=== PATIENT | female | born 1970 | race Two or more races ===

== ENCOUNTER 2019-10-03 08:07 | Emergency (ER) | payer MEDICAID ==
[~2019-10-03] VITALS: Ht 154.9 cm; Wt 53.6 kg
[2019-10-03 08:15] VITALS: BP 133/74
[2019-10-03] MEDS ORDERED: PRED20TA PO (08:22)
[2019-10-03] MEDS ORDERED: ACYC-202 PO (08:22)
[2019-10-03] MEDS ORDERED: HYDR-3965 PO (08:22)
== END 2019-10-03 08:44 | disposition home or self-care (01) ==
LOC: ER 08:08
DX: B02.9 Zoster without complications (principal); R21 Rash and other nonspecific skin eruption; Z79.899 Other long term (current) drug therapy; Z98.890 Other specified postprocedural states; Z79.2 Long term (current) use of antibiotics
CPT/HCPCS: 99283

== ENCOUNTER 2020-07-28 14:15 | Emergency (ER) | payer MEDICAID ==
[~2020-07-28] VITALS: Ht 149.9 cm; Wt 59.1 kg
[2020-07-28 14:25] VITALS: BP 133/60
[2020-07-28 14:58] LABS: CLARITY,URINE CLOUDY (Clear); COLOR,URINE RED (Yellow); GLUCOSE, URINE NEGATIVE (Neg); KETONES,URINE NEGATIVE (Neg); LEUKOCYTE ESTERASE ,URINE TRACE (Neg); NITRITES, URINE NEGATIVE (Neg); OCCULT BLOOD,URINE LARGE (Neg); PROTEIN,URINE 100 mg/dl (Neg)
[2020-07-28 14:59] LABS: UA COLLECTION TYPE CLN CATCH MIDSTREAM
[2020-07-28 15:10] LABS: BACTERIA,URINE NONE SEEN /HPF (Neg); RBC,URINE TNTC /HPF (0-2)
[2020-07-28 15:11] LABS: MUCUS STRANDS NONE SEEN /LPF (Neg); SQUAMOUS EPITHELIAL CELL,UR FEW /LPF (FEW); WBC,URINE 30-50 /HPF (0-4)
[2020-07-28] MEDS ORDERED: CEPH250T PO (15:36)
== END 2020-07-28 15:46 | disposition home or self-care (01) ==
LOC: ER 14:16
DX: N39.0 Urinary tract infection, site not specified (principal); R31.9 Hematuria, unspecified; Z95.0 Presence of cardiac pacemaker; Z98.890 Other specified postprocedural states; Z79.2 Long term (current) use of antibiotics
CPT/HCPCS: 36415; 81001; 85610; 87088; 99283

== ENCOUNTER 2020-09-21 15:50 | Emergency (ER) | payer MEDICAID ==
[~2020-09-21] VITALS: Ht 149.9 cm; Wt 59.0 kg
[~2020-09-21 15:50] MED LIST: CEPH250T PO
[2020-09-21 16:35] VITALS: BP 156/72
[2020-09-21 17:48] LABS: BASOPHILS # (AUTO) 0.1 X10'3 (0-0.2); BASOPHILS % (AUTO) 1.1 % (0-1); EOSINOPHILS # (AUTO) 0.3 X10'3 (0-0.9); EOSINOPHILS % (AUTO) 3.1 % (0-6); HEMATOCRIT 35.2 % (35.0-45.0); HEMOGLOBIN 11.8 g/dl (12.0-16.0); LYMPHOCYTES # (AUTO) 2.3 X10'3 (1.1-4.8); LYMPHOCYTES % (AUTO) 27.9 % (21-51); MEAN CORPUSCULAR HEMOGLOBIN 29.5 PG (27.0-31.0); MEAN CORPUSCULAR HGB CONC 33.3 g/dL (33.0-36.5); MEAN CORPUSCULAR VOLUME 88.4 FL (78-98); MEAN PLATELET VOLUME 9.6 FL (7.4-10.4); MONOCYTES # (AUTO) 0.5 X10'3 (0-0.9); MONOCYTES % (AUTO) 6.6 % (2-12); NEUTROPHILS % (AUTO) 61.3 % (42-75); PLATELET COUNT 231 X10'3 (140-440); RED BLOOD COUNT 3.99 X10'6 (4.20-5.60); RED CELL DISTRIBUTION WIDTH 14.6 % (11.5-14.5); WHITE BLOOD COUNT 8.2 X10'3 (4.5-11.0)
[2020-09-21 17:57] LABS: ALANINE AMINOTRANSFERASE 30 U/L (12-78); ALBUMIN 4.1 G/DL (3.4-5.0); ALKALINE PHOSPHATASE 75 IU/L (46-116); ANION GAP 8 (8-16); ASPARTATE AMINO TRANSFERASE 20 U/L (10-37); BILIRUBIN,TOTAL 0.3 MG/DL (0.1-1.0); BLOOD UREA NITROGEN 23 MG/DL (7-18); BUN/CREATININE RATIO 22.8 (6.6-38.0); CHLORIDE 103 MMOL/L (99-107); CREATININE 1.01 MG/DL (0.40-0.90); GLUCOSE 116 MG/DL (70-104); POTASSIUM 3.7 MMOL/L (3.5-5.1); SODIUM 140 MMOL/L (135-145); TOTAL CARBON DIOXIDE 29.1 MMOL/L (24-32); TOTAL PROTEIN 8.1 G/DL (6.4-8.2); eGFR 58 ML/MIN
[2020-09-21] MEDS ORDERED: iohexol 300mg/ml 100ml inj. ONE (18:08)
[2020-09-21] MEDS ORDERED: acetaminophen 325mg tablet PO ONE (20:40)
[2020-09-21] MEDS ORDERED: SULF1TAB49 PO (22:51)
[2020-09-21] MEDS ORDERED: HYDR-3965 PO (22:51)
[2020-09-21] MEDS ORDERED: HYDROcodone/acetaminophen 5mg/325mg tablet PO ONE (23:00)
== END 2020-09-21 23:13 | disposition home or self-care (01) ==
LOC: ER 15:51
DX: T84.218A Breakdown (mechanical) of internal fixation device of other bones, initial encounter (principal); I38 Endocarditis, valve unspecified; Z79.899 Other long term (current) drug therapy; Y84.8 Other medical procedures as the cause of abnormal reaction of the patient, or of later complication, without mention of misadventure at the time of the procedure; Y92.89 Other specified places as the place of occurrence of the external cause
CPT/HCPCS: 36415; 71260; 80053; 85025; 99285; Q9967

== ENCOUNTER 2021-12-04 20:41 | Emergency (ER) | payer MEDICAID ==
[~2021-12-04] VITALS: Ht 149.9 cm; Wt 65.9 kg
[2021-12-05 01:52] VITALS: BP 122/65
== END 2021-12-05 01:54 | disposition home or self-care (01) ==
LOC: ER 20:42
DX: R07.89 Other chest pain (principal); Z20.822 Contact with and (suspected) exposure to COVID-19; Z86.79 Personal history of other diseases of the circulatory system; Z95.0 Presence of cardiac pacemaker
CPT/HCPCS: 71045; 87635; 99284; C9803